=== PATIENT | male | born 1965 | race Caucasian/White ===

== ENCOUNTER 2023-06-21 14:15 | Emergency (ER) | payer OTHER, SELFPAY ==
[2023-06-21] VITALS (21 sets, daily range): BP systolic 120–156; BP diastolic 70–88; PULSE 72–90; RESP 13–23; TEMP 36.4–37.1; O2SAT 93–100
--- NOTE | ~2023-06-21 | CT_ITS ---
EXAMINATION: CT brain wo con DATE: 06/21/2023 15:37 INDICATION: head injury . TECHNIQUE: Computed tomography (CT) of the head was performed without intravenous contrast. The mA wa s adjusted according to patient size. Iterative reconstruction technique was employed. The dose-lengt h product was 605.33 mGy-cm. COMPARISON: None. FINDINGS: No acute intracranial hemorrhage or extra-axial fluid collection. No hydrocephalus, mass, or herniation. No acute ischemic infarct. Unremarkable dural venous sinus attenuation. No acute osseous abnormality. The aerated spaces are clear. Atherosclerotic intracranial calcifications. IMPRESSION: No acute intracranial process. Reviewed, dictated and finalized at location K.
--- NOTE | ~2023-06-21 | XR_ITS ---
EXAM: XR shoulder RT min 2V DATE: 06/21/2023 14:52 HISTORY: Fall . COMPARISON: None available. FINDINGS: ACDF hardware. Proximal humeral soft tissue anchor. Decreased mineralization. No acute fra cture. AC joint widening. No lytic or blastic lesion. Mild polyarticular osteoarthritis. No erosion o r periosteal change. Soft tissues within normal limits. IMPRESSION: Possible low grade AC joint injury, correlate with pain/point tenderness. Reviewed, dictated and finalized at location K. IMPRESSION: Possible low grade AC joint injury, correlate with pain/point tende rness.
--- NOTE | ~2023-06-21 | CT_ITS ---
EXAMINATION: CT cervical spine wo con DATE: 06/21/2023 15:38 INDICATION: neck pain TECHNIQUE: Computed tomography (CT) of the cervical spine was performed without intravenous contrast. Automated exposure control and iterative reconstruction technique were employed. The dose-length pro duct was 398.98 mGy-cm. COMPARISON: None. FINDINGS: Vertebral Body Alignment: Reversed lordosis, centered at C3. Minimal anterolisthesis at C2-3. Minimal retrolisthesis at C4-5. Craniocervical and atlantoaxial alignment: Moderate degenerative change. Alignment intact. Osseous structures/fracture: No evidence of a lytic or blastic process in the visualized spine. No e vidence of acute fracture. Intact ACDF hardware spanning C5-C7, with incorporated bone plugs. Cervical soft tissues: The paraspinal soft tissues planes are maintained. Degenerative changes: Multilevel degenerative disc disease and facet arthropathy. Severe right neural foraminal narrowing at C4-5 secondary to degenerative facet and uncovertebral changes. No severe isa tral canal narrowing. IMPRESSION: No acute fracture or traumatic malalignment in the cervical spine. Reviewed, dictated and finalized at location K.
--- NOTE | 2023-06-21 14:10 | ECG_ITS ---
Measurements Intervals [place] Rate: 71 P: 19 [place]: 144 QRS: -37 QRSD: 121 T: 14 QT: 419 QTc: 456 Interpretive Statements SINUS RHYTHM LEFT AXIS DEVIATION INTRAVENTRICULAR CONDUCTION DELAY VOLTAGE CRITERIA FOR LVH MINIMAL Q WAVES- HIGH LATERAL LEADS BORDERLINE ECG NO PREVIOUS ECG AVAILABLE FOR COMPARISON Electronically Signed On 06-21-2023 16:10:22 CDT by Oliver Hyde D.O.
[2023-06-21 15:09] LABS: Basophils Absolute Auto 0.1 K/mm3 (0.0-0.1); Basophils Percent Auto 0.6 % (0.2-1.2); Eosinophils Percent Auto 0.2 % (0-4.4); Hematocrit 45.4 % (42.0-52.0); Hemoglobin 15.8 g/dL (14.0-18.0); Immature Granulocyte Absolute 0.02 K/mm3 (0.00-0.031); Immature Granulocyte Percent A 0.2 % (0-0.5); Lymphocytes Percent Auto 15.2 % (18.3-44.2); Mean Corpuscular HGB Conc 34.8 g/dl (32-36); Mean Corpuscular Volume 89.2 fl (80-100); Mean Platelet Volume 10.4 fl (7.4-10.4); Monocytes Absolute Auto 0.8 K/mm3 (0.1-0.6); Monocytes Percent Auto 6.8 % (2.6-8.5); Neutrophils Absolute Auto 8.6 K/mm3 (1.3-6.7); Platelet Count Result 366 k/mm3 (150-375); Red Blood Count 5.09 M/mm3 (4.6-6.20); Red Cell Distribution Width 12.4 % (11.5-14.5); White Blood Count 11.2 K/mm3 (4.5-10.0)
[2023-06-21 15:24] LABS: Alanine Aminotransferase 17 U/L (6-50); Alkaline Phosphatase 103 U/L (38-126); Anion Gap 8 mmol/L (8-16); Aspartate Amino Transferase 27 U/L (17-59); Blood Urea Nitrogen 11 mg/dL (9-20); Calcium 9.4 mg/dL (8.4-10.2); Carbon Dioxide 27 mmol/L (22-30); Chloride 104 mmol/L (98-107); Estimated CRCL calculation 89 ml/min; Estimated Glomerular Filt Rate > 60; Glucose 111 mg/dL (65-110); Potassium 3.2 mmol/L (3.4-5.0); Sodium 139 mmol/L (137-145)
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
== END 2023-06-21 17:05 | disposition home or self-care (01) ==
PROVIDERS: Emergency Provider Emergency Medicine
DX: R55 Syncope and collapse (principal); S43.101A Unspecified dislocation of right acromioclavicular joint, initial encounter; F31.9 Bipolar disorder, unspecified; I45.9 Conduction disorder, unspecified; W18.39XA Other fall on same level, initial encounter
CPT/HCPCS: 36415; 70450; 72125; 73030; 80053; 85025; 93005; 99284